=== PATIENT | male | born 1950 | race Caucasian/White ===

== ENCOUNTER → 2023-03-07 15:37 | Outpatient (POV) | payer SELFPAY | PROVIDERS: Visit Provider Specialist/Technologist | DX: Z00.00 Encounter for general adult medical examination without abnormal findings (principal) ==

== ENCOUNTER 2025-10-13 17:53 | Emergency (ER) | payer MEDICARE, MEDICAID, SELFPAY ==
[2025-10-13 18:00] VITALS: BP 126/76; PULSE 87; RESP 16; TEMP 37.1; O2SAT 96; BMI 27.2
[2025-10-13 18:36] LABS: POC Glucose,Bedside 135 gm/dL (70-110)
--- OUTSIDE RECORDS SUMMARY | 2025-10-13 18:38 | XMS_ITS | Data Portability ---
Author Organization [facility] Address [address] [place] [address] Assessment Encounter Date Assessment Date Assessment LastModified by Organization Details LastModified Time 06/26/2024 06/26/2024 Medicare Preventive Services Check List reviewed and printed for patient. [email or web address] Not available 06/26/2024 08:14:26 06/23/2025 06/23/2025 Patient presente d to office today for their Medicare Annual Wellness Visit. Education was provided on healthy nutrition, including a diet rich in fruits and vegetables, minimizing simple carbohydrates, salt, and saturated fats. Encouraged regular cardiovascular exercise such as walking at least 30 minutes daily, 5 times per week. Emphasized preventive health measures and educated pt on fall prevention and community-based lifestyle interventions to help reduce health risks and promote healthy living. Medicare Preventive Services Check List reviewed and printed for patient. [email or web address] Not available 06/23/2025 13:55:37 Plan of Treatment Reminders Order Date Submit Date Provider Last Modified By Organization Details Last Modified Time Details Appointments None recorded. Lab HbA1c (hemoglobin A1c), blood 2024 025 [facility], [address], [address], [place], [address], 18:07:36 CBC w/ auto diff 2024 025 [facility], [address], [address], [place], [address], 18:07:35 CMP, serum or plasma 2024 025 [facility], [address], [address], [place], [address], 5 18:07:36 HbA1c (hemoglobin A1c), blood 2024 025 [facility], [address], [address], [place], [address], 5 11:07:45 CMP, serum or plasma 2024 025 [facility], [address], [address], [place], [address], 5 11:07:43 CBC w/ auto diff 2024 025 [facility], [address], [address], [place], [address], 5 11:07:42 microalbumi n/creatinin e, mass ratio, urine 2024 025 [facility], [address], [address], [place], [address], 5 11:07:44 lipid panel, serum 2024 025 [facility], [address], [address], [place], [address], 5 11:07:43 TSH + free T4, serum 2024 025 [facility], [address], [address] [address], [place], [address], 5 11:07:41 HbA1c (hemoglobin A1c), blood 2023 024 [facility], [address] [place] [address], [id number], 4 09:14:09 rapid flu (A+B) 2023 024 [facility], [address] [place] [address], [id number], 4 14:02:50 rapid SARS CoV + SARS CoV 2 Ag, QL IA, respiratory specimen 2023 024 kemal [facility], [address], [place], [address], 4 14:02:52 Referral None recorded. Procedures None recorded. Surgeries None recorded. Imaging None recorded. Medication Orders prednisone 20 mg tablet 2024 025 [facility] [id number], [address] [place], [address], 5 05:02:02 Accu-Chek Guide test strips 2024 025 [facility] [id number], [address] [place], [address], 5 14:01:52 Patient TargetsNo targets recorded. Patient Instructions Encounter Date Encounter Id Patient Instructions Last Modified By Organization Details Last Modified Time 06/26/2024 [id number] advance directives: care instructions [email or web address] Not available 06/26/2024 08:46:27 learning about depression efryman Not available 06/26/2024 08:46:26 body mass index: care instructions efryman Not available 06/26/2024 08:46:27 learning about healthy weight efryman Not available 06/26/2024 08:46:27 preventing falls : care instructions efryman Not available 06/26/2024 08:46:27 medicare preventive services guide efryman Not available 06/26/2024 08:46:27 09/25/2024 [id number] body mass index: care instructions efryman Not available 09/25/2024 09:59:53 learning about healthy weight efryman Not available 09/25/2024 09:59:53 06/23/2025 [id number] advance directives: care instructions efryman Not available 06/23/2025 15:21:21 body mass index: care instructions efryman Not available 06/23/2025 15:21:22 learning about healthy weight efryman Not available 06/23/2025 15:21:21 learning about depression efryman Not available 06/23/2025 15:21:22 preventing falls : care instructions efryman Not available 06/23/2025 15:21:22 medicare preventive services guide efryman Not available 06/23/2025 15:21:22 Reason for Referral None Reported. Results Created Date Observation Date Name Description Value Unit Range Abnormal Flag Note LastModifiedBy Organization Detail LastModifiedTime 06/23/20 24 06/23/2024 rapid SARS CoV + SARS CoV 2 Ag, QL IA, respi rator y speci men SARS CoV antigen Negati ve Not Available [address], [address], 06/23/2024 13:22:33 06/23/20 24 06/23/2024 rapid flu (A+B) Flu negati ve Not Available [address], [address], 06/23/2024 13:22:06 06/23/20 24 06/23/2024 rapid flu (A+B) Type Both A & B Not Available [address], [address], 06/23/2024 13:22:06 06/26/20 24 06/26/2024 HbA1c (hemo globi n A1c), blood HbA1C 6.0 % Not Available [address], [address], 06/26/2024 08:47:14 12/26/19 25 12/26/2024 TSH+F REE T4 TSH 2.950 uIU/m L 0.450- 4.500 normal Not Available [facility] ([facility]) [address], [place], [address], 12/26/2024 11:07:41 12/26/19 25 12/26/2024 TSH+F REE T4 T4,free(dire ct) 0.98 NG/dL 0.82-1 .77 normal Not Available [facility] ([facility]) [address] [place], [address], 12/26/2024 11:07:41 12/26/19 25 12/26/2024 CBC WITH DIFFE RENTI AL/PL ATELE T WBC 5.7 x10e3 /uL 3.4-10 .8 normal Not Available [facility] ([facility]) [address] [place], [address], 12/26/2024 11:07:42 12/26/19 25 12/26/2024 CBC WITH DIFFE RENTI AL/PL ATELE T RBC 4.63 x10e6 /uL 4.14-5 .80 normal Not Available [facility] ([facility]) [address] [place], [address], 12/26/2024 11:07:42 12/26/19 25 12/26/2024 CBC WITH DIFFE RENTI AL/PL ATELE T hemoglobin 14.2 g/dL 13.0-1 7.7 normal Not Available [facility] ([facility]) [address] [place], [address], 12/26/2024 11:07:42 12/26/19 25 12/26/2024 CBC WITH DIFFE RENTI AL/PL ATELE T hematocrit 43.2 % 37.5-5 1.0 normal Not Available [facility] ([facility]) [address] [place], [address], 12/26/2024 11:07:42 12/26/19 25 12/26/2024 CBC WITH DIFFE RENTI AL/PL ATELE T MCV 93 fL 79-97 normal Not Available [facility] ([facility]) [address] [place], [address], 12/26/2024 11:07:42 12/26/19 25 12/26/2024 CBC WITH DIFFE RENTI AL/PL ATELE T MCH 30.7 pg 26.6-3 3.0 normal Not Available [facility] ([facility]) [address] [place], [address], 12/26/2024 11:07:42 12/26/19 25 12/26/2024 CBC WITH DIFFE RENTI AL/PL ATELE T MCHC 32.9 g/dL 31.5-3 5.7 normal Not Available [facility] ([facility]) [address] [place], [address], 12/26/2024 11:07:42 12/26/19 25 12/26/2024 CBC WITH DIFFE RENTI AL/PL ATELE T RDW 13.5 % 11.6-1 5.4 Not Available [facility] ([facility]) [address] [place], [address], 12/26/2024 11:07:42 12/26/19 25 12/26/2024 CBC WITH DIFFE RENTI AL/PL ATELE T platelets 215 x10e3 /uL 150-45 0 normal Not Available [facility] ([facility]) [address] [place], [address], 12/26/2024 11:07:42 12/26/19 25 12/26/2024 CBC WITH DIFFE RENTI AL/PL ATELE T neutrophils 58 % not estab. normal Not Available [facility] ([facility]) [address] [place], [address], 12/26/2024 11:07:42 12/26/19 25 12/26/2024 CBC WITH DIFFE RENTI AL/PL ATELE T lymphs 31 % not estab. normal Not Available [facility] ([facility]) [address] [place], [address], 12/26/2024 11:07:42 12/26/19 25 12/26/2024 CBC WITH DIFFE RENTI AL/PL ATELE T monocytes 7 % not estab. normal Not Available [facility] ([facility]) [address] [place], [address], 12/26/2024 11:07:42 12/26/19 25 12/26/2024 CBC WITH DIFFE RENTI AL/PL ATELE T eos 2 % not estab. normal Not Available [facility] ([facility]) [address] [facility], [place], [address], 12/26/2024 11:07:42 12/26/19 25 12/26/2024 CBC WITH DIFFE RENTI AL/PL ATELE T basos 1 % not estab. normal Not Available [facility] ([facility]) [address] [facility], [place], [address], 12/26/2024 11:07:42 12/26/19 25 12/26/2024 CBC WITH DIFFE RENTI AL/PL ATELE T immature cells STRAIGHTENING MACHINE OPERATOR Not Available [facility] ([facility]) [address] [place], [address], 12/26/2024 11:07:42 12/26/19 25 12/26/2024 CBC WITH DIFFE RENTI AL/PL ATELE T neutrophils (absolute) 3.3 x10e3 /uL 1.4-7. 0 normal Not Available [facility] ([facility]) [address] [place], [address], 12/26/2024 11:07:42 12/26/19 25 12/26/2024 CBC WITH DIFFE RENTI AL/PL ATELE T lymphs (absolute) 1.8 x10e3 /uL 0.7-3. 1 normal Not Available [facility] ([facility]) [address] [place], [address], 12/26/2024 11:07:42 12/26/19 25 12/26/2024 CBC WITH DIFFE RENTI AL/PL ATELE T monocytes(ab solute) 0.4 x10e3 /uL 0.1-0. 9 normal Not Available [facility] ([facility]) [address] [facility], [place], [address], 12/26/2024 11:07:42 12/26/19 25 12/26/2024 CBC WITH DIFFE RENTI AL/PL ATELE T eos (absolute) 0.1 x10e3 /uL 0.0-0. 4 normal Not Available [facility] ([facility]) [address] [facility], [place], [address], 12/26/2024 11:07:42 12/26/19 25 12/26/2024 CBC WITH DIFFE RENTI AL/PL ATELE T baso (absolute) 0.1 x10e3 /uL 0.0-0. 2 normal Not Available [facility] ([facility]) [address] [place], [address], 12/26/2024 11:07:42 12/26/19 25 12/26/2024 CBC WITH DIFFE RENTI AL/PL ATELE T immature granulocytes 1 % not estab. Not Available [facility] ([facility]) [address] [place], [address], 12/26/2024 11:07:42 12/26/19 25 12/26/2024 CBC WITH DIFFE RENTI AL/PL ATELE T immature grans (abs) 0.0 x10e3 /uL 0.0-0. 1 Not Available [facility] ([facility]) [address] [place], [address], 12/26/2024 11:07:42 12/26/19 25 12/26/2024 CBC WITH DIFFE RENTI AL/PL ATELE T NRBC STRAIGHTENING MACHINE OPERATOR Not Available [facility] ([facility]) [address] [place], [address], 12/26/2024 11:07:42 12/26/19 25 12/26/2024 CBC WITH DIFFE BRIANA AL/PL ATELE T hematology comments: STRAIGHTENING MACHINE OPERATOR Not Available [facility] ([facility]) [address] [facility], [place], [address], 12/26/2024 11:07:42 12/26/19 25 12/26/2024 COMP. METAB OLIC PANEL (14) glucose 170 mg/dL 70-99 above high normal Not Available [facility] ([facility]) [address] [facility], [place], [address], 12/26/2024 11:07:43 12/26/19 25 12/26/2024 COMP. METAB OLIC PANEL (14) BUN 22 mg/dL 8-27 normal Not Available [facility] ([facility]) [address] [facility], [place], [address], 12/26/2024 11:07:43 12/26/19 25 12/26/2024 COMP. METAB OLIC PANEL (14) creatinine 1.24 mg/dL 0.76-1 .27 normal Not Available [facility] ([facility]) [address] [place], [address], 12/26/2024 11:07:43 12/26/19 25 12/26/2024 COMP. METAB OLIC PANEL (14) eGFR 61 mL/mi n/1.7 3 >59 normal Not Available [facility] ([facility]) [address] [facility], [place], [address], 12/26/2024 11:07:43 12/26/19 25 12/26/2024 COMP. METAB OLIC PANEL (14) BUN/creatini ne ratio 18 10-24 normal Not Available [facility] ([facility]) [address] [place], [address], 12/26/2024 11:07:43 12/26/19 25 12/26/2024 COMP. METAB OLIC PANEL (14) sodium 141 mmol/ L 134-14 4 normal Not Available [facility] ([facility]) [address] [place], [address], 12/26/2024 11:07:43 12/26/19 25 12/26/2024 COMP. METAB OLIC PANEL (14) potassium 4.4 mmol/ L 3.5-5. 2 normal Not Available [facility] ([facility]) [address] [place], [address], 12/26/2024 11:07:43 12/26/19 25 12/26/2024 COMP. METAB OLIC PANEL (14) chloride 103 mmol/ L 96-106 normal Not Available [facility] ([facility]) [address] [place], [address], 12/26/2024 11:07:43 12/26/19 25 12/26/2024 COMP. METAB OLIC PANEL (14) carbon dioxide, total 23 mmol/ L 20-29 normal Not Available [facility] ([facility]) [address] [place], [address], 12/26/2024 11:07:43 12/26/19 25 12/26/2024 COMP. METAB OLIC PANEL (14) calcium 9.2 mg/dL 8.6-10 .2 normal Not Available [facility] ([facility]) [address] [place], [address], 12/26/2024 11:07:43 12/26/19 25 12/26/2024 COMP. METAB OLIC PANEL (14) protein, total 6.9 g/dL 6.0-8. 5 normal Not Available [facility] ([facility]) [address] [place], [address], 12/26/2024 11:07:43 12/26/19 25 12/26/2024 COMP. METAB OLIC PANEL (14) albumin 4.4 g/dL 3.8-4. 8 normal Not Available [facility] ([facility]) [address] [place], [address], 12/26/2024 11:07:43 12/26/19 25 12/26/2024 COMP. METAB OLIC PANEL (14) globulin, total 2.5 g/dL 1.5-4. 5 Not Available [facility] ([facility]) [address] [place], [address], 12/26/2024 11:07:43 12/26/19 25 12/26/2024 COMP. METAB OLIC PANEL (14) bilirubin, total 0.8 mg/dL 0.0-1. 2 normal Not Available [facility] ([facility]) [address] [place], [address], 12/26/2024 11:07:43 12/26/19 25 12/26/2024 COMP. METAB OLIC PANEL (14) alkaline phosphatase 188 IU/L 44-121 above high normal Not Available [facility] ([facility]) [address] [place], [address], 12/26/2024 11:07:43 12/26/19 25 12/26/2024 COMP. METAB OLIC PANEL (14) AST (SGOT) 17 IU/L 0-40 normal Not Available [facility] ([facility]) [address] [place], [address], 12/26/2024 11:07:43 12/26/19 25 12/26/2024 COMP. METAB OLIC PANEL (14) ALT (SGPT) 14 IU/L 0-44 normal Not Available [facility] ([facility]) [address] [place], [address], 12/26/2024 11:07:43 12/26/19 25 12/26/2024 LIPID PANEL cholesterol, total 213 mg/dL 100-19 9 above high normal Not Available [facility] ([facility]) [address] [place], [address], 12/26/2024 11:07:43 12/26/19 25 12/26/2024 LIPID PANEL triglyceride s 287 mg/dL 0-149 above high normal Not Available [facility] ([facility]) [address] [place], [address], 12/26/2024 11:07:43 12/26/19 25 12/26/2024 LIPID PANEL HDL cholesterol 33 mg/dL >39 below low normal Not Available [facility] ([facility]) [address] [place], [address], 12/26/2024 11:07:43 12/26/19 25 12/26/2024 LIPID PANEL VLDL cholesterol audie 51 mg/dL 5-40 above high normal Not Available [facility] ([facility]) [address] [place], [address], 12/26/2024 11:07:43 12/26/19 25 12/26/2024 LIPID PANEL LDL chol calc ([facility]) 129 mg/dL 0-99 above high normal Not Available [facility] ([facility]) [address] [place], [address], 12/26/2024 11:07:43 12/26/19 25 12/26/2024 LIPID PANEL LDL calc comment: STRAIGHTENING MACHINE OPERATOR Not Available [facility] ([facility]) [address] [place], [address], 12/26/2024 11:07:43 12/26/19 25 12/26/2024 ALBUM IN/CR EAT RATIO , RANDO M UR creatinine, urine 254.8 mg/dL not estab. normal Not Available [facility] ([facility]) [address] [place], [address], 12/26/2024 11:07:44 12/26/19 25 12/26/2024 ALBUM IN/CR EAT RATIO , RANDO M UR albumin, urine 39.4 ug/mL not estab. Not Available [facility] ([facility]) [address] [facility], [place], [address], 12/26/2024 11:07:44 12/26/1912/26/2024 ALBUM IN/CR EAT RATIO , TEX Rudolph UR alb/creat ratio 15 mg/g_ creat 0-29 Mirna l: 0 - 29 Moder ately incre ased: 30 - 300 Sever elpidio incre ased: >300 Not Available [facility] ([facility]) [address] [facility], [place], [address], 12/26/2024 11:07:44 12/26/19 25 12/26/2024 HEMOG LOBIN A1C hemoglobin A1C 6.2 % 4.8-5. 6 above high normal Predi abete s: 5.7 - 6.4 Diabe raghavendra: >6.4 Glyce jael contr ol for adult s with diabe raghavendra: <7.0 Not Available [facility] ([facility]) [address] [facility], [place], [address], 12/26/2024 11:07:45 12/26/1912/26/2024 PLELOUIS E NOTE please note Commen t The date and/o r time of colle ction was not indic ated on the requi sitio n as requi red by state and julisa al law. The date of recei pt of the speci men was used as the colle ction date if not suppl ied. Not Available [facility] ([facility]) [address] [facility], [place], [address], 12/26/2024 11:07:46 06/23/20 25 06/24/2025 CBC WITH DIFFE RENTI AL/PL ATELE T WBC 7.4 x10e3 /uL 3.4-10 .8 normal Not Available [facility] ([facility]) [address] [facility], [place], [address], 06/24/2025 18:07:35 06/23/20 25 06/24/2025 CBC WITH DIFFE RENTI AL/PL ATELE T RBC 4.80 x10e6 /uL 4.14-5 .80 normal Not Available [facility] ([facility]) [address] [place], [address], 06/24/2025 18:07:35 06/23/20 25 06/24/2025 CBC WITH DIFFE RENTI AL/PL ATELE T hemoglobin 14.8 g/dL 13.0-1 7.7 normal Not Available [facility] ([facility]) [address] [place], [address], 06/24/2025 18:07:35 06/23/2006/24/2025 CBC WITH DIFFE RENTI AL/PL ATELE T hematocrit 44.6 % 37.5-5 1.0 normal Not Available [facility] ([facility]) [address] [place], [address], 06/24/2025 18:07:35 06/23/2006/24/2025 CBC WITH DIFFE RENTI AL/PL ATELE T MCV 93 fL 79-97 normal Not Available [facility] ([facility]) [address] [place], [address], 06/24/2025 18:07:35 06/23/2006/24/2025 CBC WITH DIFFE RENTI AL/PL ATELE T MCH 30.8 pg 26.6-3 3.0 normal Not Available [facility] ([facility]) [address] [place], [address], 06/24/2025 18:07:35 06/23/2006/24/2025 CBC WITH DIFFE RENTI AL/PL ATELE T MCHC 33.2 g/dL 31.5-3 5.7 normal Not Available [facility] ([facility]) [address] [place], [address], 06/24/2025 18:07:35 06/23/20 25 06/24/2025 CBC WITH DIFFE RENTI AL/PL ATELE T RDW 13.6 % 11.6-1 5.4 Not Available [facility] ([facility]) [address] [facility], [place], [address], 06/24/2025 18:07:35 06/23/20 25 06/24/2025 CBC WITH DIFFE RENTI AL/PL ATELE T platelets 214 x10e3 /uL 150-45 0 normal Not Available [facility] ([facility]) [address] [facility], [place], [address], 06/24/2025 18:07:35 06/23/20 25 06/24/2025 CBC WITH DIFFE RENTI AL/PL ATELE T neutrophils 62 % not estab. normal Not Available [facility] ([facility]) [address] [facility], [place], [address], 06/24/2025 18:07:35 06/23/20 25 06/24/2025 CBC WITH DIFFE RENTI AL/PL ATELE T lymphs 28 % not estab. normal Not Available [facility] ([facility]) [address] [facility], [place], [address], 06/24/2025 18:07:35 06/23/20 25 06/24/2025 CBC WITH DIFFE RENTI AL/PL ATELE T monocytes 7 % not estab. normal Not Available [facility] ([facility]) [address] [facility], [place], [address], 06/24/2025 18:07:35 06/23/20 25 06/24/2025 CBC WITH DIFFE RENTI AL/PL ATELE T eos 1 % not estab. normal Not Available [facility] ([facility]) [address] [facility], [place], [address], 06/24/2025 18:07:35 06/23/20 25 06/24/2025 CBC WITH DIFFE RENTI AL/PL ATELE T basos 1 % not estab. normal Not Available [facility] ([facility]) [address] [facility], [place], [address], 06/24/2025 18:07:35 06/23/20 25 06/24/2025 CBC WITH DIFFE RENTI AL/PL ATELE T immature cells STRAIGHTENING MACHINE OPERATOR Not Available [facility] ([facility]) [address] [facility], [place], [address], 06/24/2025 18:07:35 06/23/20 25 06/24/2025 CBC WITH DIFFE RENTI AL/PL ATELE T neutrophils (absolute) 4.6 x10e3 /uL 1.4-7. 0 normal Not Available [facility] ([facility]) [address] [facility], [place], [address], 06/24/2025 18:07:35 06/23/20 25 06/24/2025 CBC WITH DIFFE RENTI AL/PL ATELE T lymphs (absolute) 2.0 x10e3 /uL 0.7-3. 1 normal Not Available [facility] ([facility]) [address] [facility], [place], [address], 06/24/2025 18:07:35 06/23/20 25 06/24/2025 CBC WITH DIFFE RENTI AL/PL ATELE T monocytes(ab solute) 0.5 x10e3 /uL 0.1-0. 9 normal Not Available [facility] ([facility]) [address] [facility], [place], [address], 06/24/2025 18:07:35 06/23/20 25 06/24/2025 CBC WITH DIFFE RENTI AL/PL ATELE T eos (absolute) 0.1 x10e3 /uL 0.0-0. 4 normal Not Available [facility] ([facility]) [address] [facility], [place], [address], 06/24/2025 18:07:35 06/23/20 25 06/24/2025 CBC WITH DIFFE RENTI AL/PL ATELE T baso (absolute) 0.1 x10e3 /uL 0.0-0. 2 normal Not Available [facility] ([facility]) [address] [facility], [place], [address], 06/24/2025 18:07:35 06/23/20 25 06/24/2025 CBC WITH DIFFE RENTI AL/PL ATELE T immature granulocytes 0 % not estab. Not Available [facility] ([facility]) [address] [facility], [place], [address], 06/24/2025 18:07:35 06/23/20 25 06/24/2025 CBC WITH DIFFE RENTI AL/PL ATELE T immature grans (abs) 0.0 x10e3 /uL 0.0-0. 1 Not Available [facility] ([facility]) [address] [facility], [place], [address], 06/24/2025 18:07:35 06/23/20 25 06/24/2025 CBC WITH DIFFE RENTI AL/PL ATELE T NRBC STRAIGHTENING MACHINE OPERATOR Not Available [facility] ([facility]) [address] [facility], [place], [address], 06/24/2025 18:07:35 06/23/20 25 06/24/2025 CBC WITH DIFFE RENTI AL/PL ATELE T hematology comments: STRAIGHTENING MACHINE OPERATOR Not Available [facility] ([facility]) [address] [facility], [place], [address], 06/24/2025 18:07:35 06/23/20 25 06/24/2025 COMP. METAB OLIC PANEL (14) glucose 99 mg/dL 70-99 normal Not Available [facility] ([facility]) [address] [place], [address], 06/24/2025 18:07:36 06/23/20 25 06/24/2025 COMP. METAB OLIC PANEL (14) BUN 26 mg/dL 8-27 normal Not Available [facility] ([facility]) [address] [facility] [place], [address], 06/24/2025 18:07:36 06/23/20 25 06/24/2025 COMP. METAB OLIC PANEL (14) creatinine 1.31 mg/dL 0.76-1 .27 above high normal Not Available [facility] ([facility]) [address] [place], [address], 06/24/2025 18:07:36 06/23/20 25 06/24/2025 COMP. METAB OLIC PANEL (14) eGFR 57 mL/mi n/1.7 3 >59 below low normal Not Available [facility] ([facility]) [address] [place], [address], 06/24/2025 18:07:36 06/23/20 25 06/24/2025 COMP. METAB OLIC PANEL (14) BUN/creatini ne ratio 20 10-24 normal Not Available [facility] ([facility]) [address] [facility], [place], [address], 06/24/2025 18:07:36 06/23/20 25 06/24/2025 COMP. METAB OLIC PANEL (14) sodium 138 mmol/ L 134-14 4 normal Not Available [facility] ([facility]) [address] [place], [address], 06/24/2025 18:07:36 06/23/20 25 06/24/2025 COMP. METAB OLIC PANEL (14) potassium 4.7 mmol/ L 3.5-5. 2 normal Not Available [facility] ([facility]) [address] [place], [address], 06/24/2025 18:07:36 06/23/20 25 06/24/2025 COMP. METAB OLIC PANEL (14) chloride 100 mmol/ L 96-106 normal Not Available [facility] ([facility]) [address] [place], [address], 06/24/2025 18:07:36 06/23/20 25 06/24/2025 COMP. METAB OLIC PANEL (14) carbon dioxide, total 23 mmol/ L 20-29 normal Not Available [facility] ([facility]) [address] [place], [address], 06/24/2025 18:07:36 06/23/20 25 06/24/2025 COMP. METAB OLIC PANEL (14) calcium 9.7 mg/dL 8.6-10 .2 normal Not Available [facility] ([facility]) [address] [place], [address], 06/24/2025 18:07:36 06/23/20 25 06/24/2025 COMP. METAB OLIC PANEL (14) protein, total 7.3 g/dL 6.0-8. 5 normal Not Available [facility] ([facility]) [address] [place], [address], 06/24/2025 18:07:36 06/23/20 25 06/24/2025 COMP. METAB OLIC PANEL (14) albumin 4.7 g/dL 3.8-4. 8 normal Not Available [facility] ([facility]) [address] [place], [address], 06/24/2025 18:07:36 06/23/20 25 06/24/2025 COMP. METAB OLIC PANEL (14) globulin, total 2.6 g/dL 1.5-4. 5 Not Available [facility] ([facility]) [address] [place], [address], 06/24/2025 18:07:36 06/23/20 25 06/24/2025 COMP. METAB OLIC PANEL (14) bilirubin, total 1.0 mg/dL 0.0-1. 2 normal Not Available [facility] ([facility]) [address] [place], [address], 06/24/2025 18:07:36 06/23/20 25 06/24/2025 COMP. METAB OLIC PANEL (14) alkaline phosphatase 179 IU/L 44-121 above high normal Eff ectiv e Septe mber 2024 Alkal ine Phosp hatas e refer ence inter andrea will be langford ing to: Age Male Femal e 0 - 5 days 47 - 127 47 - 127 6 - 10 days 29 - 242 29 - 242 11 - 20 days 109 - 357 109 - 357 21 - 30 days 94 - 494 94 - 494 1 - 2 month s 149 - 539 149 - 539 3 - 6 month s 131 - 452 131 - 452 7 - 11 month s 117 - 401 117 - 401 12 month s - 6 years 158 - 369 158 - 369 7 - 12 years 150 - 409 150 - 409 13 years 156 - 435 78 - 227 14 years 114 - 375 64 - 161 15 years 88 - 279 56 - 134 16 years 74 - 207 51 - 121 17 years 63 - 161 47 - 113 18 - 20 years 51 - 125 42 - 106 21 - 50 years 47 - 123 41 - 116 51 - 80 years 49 - 135 51 - 125 >80 years 48 - 129 48 - 129 Not Available [facility] ([facility]) [address] [place], [address], 06/24/2025 18:07:36 06/23/20 25 06/24/2025 COMP. METAB OLIC PANEL (14) AST (SGOT) 18 IU/L 0-40 normal Not Available [facility] ([facility]) [address] [place], [address], 06/24/2025 18:07:36 06/23/20 25 06/24/2025 COMP. METAB OLIC PANEL (14) ALT (SGPT) 15 IU/L 0-44 normal Not Available [facility] ([facility]) [address] [place], [address], 06/24/2025 18:07:36 06/23/20 25 06/24/2025 HEMOG LOBIN A1C hemoglobin A1C 6.1 % 4.8-5. 6 above high normal Predi abete s: 5.7 - 6.4 Diabe raghavendra: >6.4 Glyce jael contr ol for adult s with diabe raghavendra: <7.0 Not Available [facility] ([facility]) [address] [facility], [place], [address], 06/24/2025 18:07:36 Result Notes None recorded. Problems Name Problem SNOMED Code Status Onset Date Resolution Date Notes Provider Name and Address Organization Details Recorded Time Gout 39627149 Active 019 Darin Diane, DEVELOPMENT ASSISTANT [address], [place], [address] , [place] - [facility] 3 09:54:30 Type 2 diabetes mellitus 70421665 Active 024 Darin Diane, DEVELOPMENT ASSISTANT [address], [place], [address] , [place] - [facility] 4 09:04:12 Problem Notes None recorded. Procedures Surgical History Date Name Laterality Status Provider Name and Address Organization Details Recorded Time 5 Cerumen Removal completed Darin Diane, DEVELOPMENT ASSISTANT [address], [place], [address], [place] - [facility] 06/23/2025 15:44:10 5 Advance Care Planning completed Dary Grajeda [place] - [facility] 06/23/2025 13:55:38 5 Functional Status Assessed completed Dary Grajeda [facility] 06/23/2025 13:55:38 4 Advance Care Planning completed Asia Ellison [place] - [facility] 06/26/2024 08:14:27 4 Functional Status Assessed completed Asia Ellison [facility] 06/26/2024 08:14:27 Imaging Results None recorded. Procedure Notes None recorded. Medical Equipment None Reported. Allergies No known drug allergies Medications Name Sig Start Date Stop Date Status Note LastModified by Organization Details LastModified Time prednisone 20 mg tablet Take 1 tablet twice a day by oral route for 3 days. 07/03 completed Not Available Not Available Not Available OneTouch Ultra Test strips Take 1 strip 3 times a day by miscell. route. 06/23 completed Not Available Not Available Not Available oseltamivir 75 mg capsule Take 1 capsule twice a day by oral route for 5 days, for flu. 03/03 completed Not Available Not Available Not Available indomethacin 50 mg capsule TAKE ONE (1) CAPSULE THREE (3) TIMES A DAY BY ORAL ROUTE FOR FIVE (5) DAYS. 03/11 completed Not Available Not Available Not Available diclofenac 1 % topical gel 06/23 completed Not Available Not Available Not Available Accu-Chek Guide Me Glucose Meter 06/23 completed Not Available Not Available Not Available Vitals Date Recorded Body height Body mass index (BMI) Body weight Heart rate Oxygen saturation Respiratory rate Pain severity - 0-10 verbal numeric rating [Score] - Reported Body temperature Systolic And Diastolic Provider Name and Address Organization Details Last Updated DateTime 5 177.8 cm 27.4 kg/m2 79197.1 4 g 78 /min 98 % 18 /min 0 98.1 [degF] 130/78 mm[Hg] Asia Ellison [facility] 5 08:16:04 Date Recorded Body height Body mass index (BMI) Body weight Body temperature Heart rate Oxygen saturation Respiratory rate Pain severity - 0-10 verbal numeric rating [Score] - Reported Systolic And Diastolic Provider Name and Address Organization Details Last Updated DateTime 4 177.8 cm 27.8 kg/m2 47520.9 2 g 98 [degF] 86 /min 96 % 18 /min 0 128/80 mm[Hg] Asia Ellison [facility] 4 13:18:14 Date Recorded Body height Respiratory rate Body mass index (BMI) Body weight Heart rate Oxygen saturation Body temperature Systolic And Diastolic Provider Name and Address Organization Details Last Updated DateTime 5 177.8 cm 18 /min 26.8 kg/m2 38550.7 7 g 74 /min 99 % 97.9 [degF] 136/80 mm[Hg] Dary Grajeda [place] - [facility] 5 14:00:33 Date Recorded Body height Body mass index (BMI) Body weight Body temperature Heart rate Oxygen saturation Respiratory rate Pain severity - 0-10 verbal numeric rating [Score] - Reported Systolic And Diastolic Provider Name and Address Organization Details Last Updated DateTime 4 177.8 cm 27.1 kg/m2 18009.6 6 g 97 [degF] 86 /min 95 % 18 /min 0 124/70 mm[Hg] Asia Ellison [place] - [facility] 4 08:20:18 Date Recorded Body height Body mass index (BMI) Body weight Body temperature Heart rate Oxygen saturation Respiratory rate Pain severity - 0-10 verbal numeric rating [Score] - Reported Systolic And Diastolic Provider Name and Address Organization Details Last Updated DateTime 4 177.8 cm 27.4 kg/m2 98821.1 4 g 97.6 [degF] 77 /min 96 % 18 /min 0 136/80 mm[Hg] Asia Ellison [place] - [facility] 4 08:16:38 Social History Question Answer Notes LastModified by Organizat ion Details LastModified Time Tobacco Smoking Status Former Smoker Francesca Greene rogerio [place] - [facility] 05/13/2019 11:07:34 Do You Have An Advance Directive? No Information not available 06/23/2025 Are You Blind Or Do You Have Difficulty Seeing? No Information not available 06/23/2025 What Is Your Level Of Caffeine Consumption? Occasional Information not available 06/23/2025 How Much Tobacco Do You Chew? 1/day Fredy Every 3 Days Information not available 06/23/2025 In The 14 Days Before Symptom Onset, Have You Had Close Contact With A Laboratory-confir med COVID-19 While That Case Was Ill? No Information not available 06/26/2024 In The 14 Days Before Symptom Onset, Have You Had Close Contact With A Person Who Is Under Investigation For COVID-19 While That Person Was Ill? No Information not available 06/26/2024 Have You Been To An Area Known To Be High Risk For COVID-19? No Information not available 06/26/2024 Are You Deaf Or Do You Have Serious Difficulty Hearing? No Information not available 06/23/2025 What Type Of Diet Are You Following? REGULAR [email or web address] Information not available 05/13/2019 Have You Processed Blood Or Body Fluids From An Ebola Virus Disease Patient Without Appropriate PPE? No Information not available 06/26/2024 Do You Reside In Or Have You Traveled To An Area Where Ebola Virus Transmission Is Active? No Information not available 06/26/2024 Have There Been Any Changes To Your Family Or Social Situation? No Information no t available 06/23/2025 What Is The Fluoride Status Of Your Home? Unknown Information not available 06/23/2025 When Did You Quit Smoking? 16+yearssince lastcigarette Information not available 06/23/2025 Hard Of Hearing Or Deaf In One Or Both Ears? No [email or web address] Information not available 05/13/2019 Have You Recently Or Are You Planning To Travel To An Area With Zika Virus? No Information not available 06/26/2024 Legally Blind In One Or Both Eyes? No [email or web address] Information no t available 05/13/2019 Live Alone Or With Others? With Others [email or web address] Information not available 05/13/2019 Do You Have A Medical Power Of Bricklayer Sewer? No Information not available 06/23/2025 What Was The Date Of Your Most Recent Tobacco Screening? 06/23/2025 Information not available 06/23/2025 What Is Your Current Pack Years? 10-19packyear s Information not available 06/23/2025 What Is Your Relationship Status? Information not available 05/13/2019 Smoke Alarm In Home Yes [email or web address] Information not available 05/13/2019 Do You Have Smoke And Carbon Monoxide Detectors In Your Home? Yes Information not available 06/23/2025 At What Age Did You Start Smoking Tobacco? 16 Per Patient Information not available 06/23/2025 How Much Tobacco Do You Smoke? 0.25 PPD Information not available 06/23/2025 Has Tobacco Cessation Counseling Been Provided? Yes Information not available 03/03/2024 On What Date Was Tobacco Cessation Counseling Provided? 03/03/2024 Former Smoker Information not available 06/23/2025 How Many Years Have You Smoked Tobacco? 18 Stopped Around Age 34 Per Patient Information not available 06/23/2025 Do You Have Difficulty Walking Or Climbing Stairs? No Information not available 06/23/2025 Sex: Male Functional Status Question Answer Note LastModified by Organizat ion Details LastModified Time Do you use any illicit or recreational drugs? No Information not available 03/03/2024 Do you or have you ever used any other forms of tobacco or nicotine? Yes Information not available 03/03/2024 What is your level of alcohol consumption? None Information not available 06/23/2025 Do you or have you ever used smokeless tobacco? Currently chews tobacco Information not available 03/03/2024 Are you currently employed? No Information not available 06/23/2025 Do you have transportation difficulties? No Information not available 06/23/2025 Are you able to walk independently without assistance or assistive devices? YESWOREST [email or web address] Information not available 05/13/2019 Do you have difficulty doing errands alone? No Information not available 06/23/2025 Are you able to care for yourself independently? Yes [email or web address] Information not available 05/13/2019 Do you have difficulty dressing, bathing, grooming, or toileting? No Information not available 06/23/2025 Do you or have you ever used e-cigarettes or vape? Never used electronic cigarettes Information not available 06/23/2025 Mental Status Question Answer Note LastModified by Organizat ion Details LastModified Time Do you feel stressed (tense, restless, nervous, or anxious, or unable to sleep at night)? [id number] Information not available 06/23/2025 Do you have difficulty concentrating, remembering or making decisions? No Information no t available 06/23/2025 Family History Relationship Description Onset Age of this Age Resolved Age Notes LastModified by Organization Details LastModified Time Father No current problems or disability [email or web address] Not available 05/13 11:07:16 Mother No current problems or disability [email or web address] Not available 05/13 11:07:16 Medical History Condition Response Colonoscopy N Immunizations Vaccine Type Date Status Note Provider Name and Address Organization Details Recorded Time Tdap 024 completed Asia beatty, [place] - [facility] 03/25/2024 10:01:02 zoster recombinant 024 cancelled patient objection Darin Diane, DEVELOPMENT ASSISTANT [address], [place], [address], [place] - [facility] 03/25/2024 09:49:35 Pneumococcal conjugate PCV20, polysaccharide [id number] conjugate, adjuvant, PF 024 cancelled patient objection Darin Diane, DEVELOPMENT ASSISTANT [address], [place], [address], [place] [facility] 03/25/2024 09:51:27 Influenza, high-dose, trivalent, PF 024 cancelled patient objection Darin Diane, DEVELOPMENT ASSISTANT [address], [place], [address], [place] [facility] 06/26/2024 09:01:42 zoster recombinant 024 cancelled patient objection Darin Diane APRN [address], [place], [address], [facility] - [facility] 06/26/2024 09:01:42 Pneumococcal conjugate PCV20, polysaccharide [id number] conjugate, adjuvant, PF 024 cancelled patient objection Darin Diane, ANGELES [address], [place], [address], [place] [facility] 06/26/2024 09:01:42 Pneumococcal conjugate PCV20, polysaccharide [id number] conjugate, adjuvant, PF 025 cancelled patient objection Dary Grajeda null, [place] - [facility] 06/23/2025 15:50:56 zoster recombinant 025 cancelled patient objection Dary Grajeda null, [place] - [facility] 06/23/2025 15:50:56 Td (adult), 5 Lf tetanus toxoid, preservative free, adsorbed 005 completed Asia Ellison null, [place] - [facility] 01/29/2023 16:01:19 Past Encounters Encounter ID Performer Location Encounter Start Date Encounter Closed Date Diagnosis/Indication Diagnosis SNOMED-CT Code Diagnosis ICD10 Code Diagnosis IMO Codes Diagnosis Note [id number] Jenna Bird APRN [facility] [address] [place] [address] 05/13/2019 09:59:34 05/13/2019 11:35:43 [facility] 16250356 M10.9 [id number] Darin Diane [address] [address] 01/29/2023 15:40:08 01/29/2023 16:22:39 Gout 52363855 M10.9 do not take indomethac in with steroids. Pain of ri ght shoulder joint 4358413580 7238804 M25.511 rest shoulderif no improvemen t will do more work up Bursitis o f right shoulder 5050802284 91808 M75.51 [id number] Darin Diane [address] [address] 02/12/2023 09:14:48 02/12/2023 09:56:34 Gout 14544271 M10.9 return for any concernsca ll when ready to have labs done [id number] Darin Diane [address] [address] 10/25/2023 16:35:22 10/25/2023 17:02:55 Influenza caused by Influenza A virus 632414848 J09.X2 no sign of a bacterial infection. likely viral. viruses can take 7-14 days to run their course. nasal saline and bulb syringe to remove nasal drainage to help with congestion . monitor temp. Tylenol or Motrin as needed for pain or fever. encourage fluids, water, Gatorade, power aide, Pedialyte if infant/tod dler/child warm salt water gargles warm fluids sore throat lozenges sleep elevated humidifier /vaporizer follow up immediatel y for new or worsening symptoms or no noticeable improvemen t over the next 48-72 hours [id number] Asia Morales [facility] [address] [place] [address] 03/03/2024 15:06:19 03/03/2024 16:35:17 Gout 32398511 M10.9 Nicotine dependence 5629 4008 F17.200 Screening for malignant neoplasm of colon 853039738 Z12.11 Body mass index 25-29 - overweight 625199632 Z68.28 Overweight 177114642 E66 .3 [id number] Eugzulema Diane APRN [address] [address] 03/11/2024 15:50:33 03/11/2024 17:01:15 Gout 79676294 M10.9 return for any concerns [id number] Darcyzulema Diane DEVELOPMENT ASSISTANT [address] [address] 03/25/2024 09:04:54 03/25/2024 10:06:35 Body mass index 25-29 - overweight 881427353 Z68.28 Will check TSH and evaluate results. Overweight 804169376 E66 .3 Weight and overall well being discussed and will evaluate labs. Hyperlipid emia screening 497484020 Z13.220 Will check labs and evaluate. Gout 78380635 M10.9 Patient states prednisone helped and hasn't had any flare ups since last visit.Disc ussed returning for any concerns or new flare ups. Active or passive immunization 379028838 Z23 Hepatitis C screening declined 1172826604 5105 Z53.20 Abdominal aortic aneurysm screening declined 254958123 Z53.20 [id number] Darin NeffbassemANGELES [address] [address] 03/31/2024 08:22:08 03/31/2024 09:20:32 Impaired fasting glycemia 878724212 R73.01 Type 2 yovanny betes mellitus 77287358 E11.9 new dx of type 2 dm discussed in detail dxeducatio n packet given to pt, discussed the dx in great detailfoot care instructio ns given to ptmonitor/ test strips/jazlyn cet sample given to ptcheck glucose daily or at times he feels diffkeep log bring to next appointmen tpt wants to try diet first before any meds. discussed he he sees glucose staying up even with diet to return.vicky terry recheck all labs in 3 months Gout 65454771 M10.9 Discussed returning for any concerns or new flare ups. [id number] Darcyzulema Diane APRN [address] [address] 06/23/2024 13:04:28 06/23/2024 14:41:26 Viral upper respiratory tract infection 263018101 J06.9 no sign of a bacterial infection. likely viral. viruses can take 7-14 days to run their course. nasal saline and bulb syringe to remove nasal drainage to help with congestion . monitor temp. Tylenol or Motrin as needed for pain or fever. encourage fluids, water, Gatorade, power aide, Pedialyte if infant/tod dler/child warm salt water gargles warm fluids sore throat lozenges sleep elevated humidifier /vaporizer follow up immediatel y for new or worsening symptoms or no noticeable improvemen t over the next 48-72 hours [id number] Darin Diane APRN [address] [address] 06/26/2024 08:05:26 06/26/2024 09:28:04 Adult health examination 296236152 Z00.00 Depression screening 171 943685 Z13.31 A depression screening was completed via a standardiz ed screening tool. 5 minutes were spent discussing depression screening results and risk factors. Examinatio n of blood pressure 049341587 Z01.30 Diet education 10502891 Z71.3 Counseling 117164757 Z71 .82 Exercise counseling . Patient encouraged to exercise 30 minutes 5 days a week. At [facility] ed risk for falls 087182422 Z91.81 STEADI FAST screening score of __1___. Advance care planning 71 9392905 Z71.89 Body mass index 25-29 - overweight 315404459 Z68.27 Overweight 795560371 E66 .3 Weight and overall well being discussed Active or passive immunization 910580241 Z23 Type 2 yovanny betes mellitus 96419479 E11.9 new dx of type 2 dm discussed in detail dxeducatio n packet given to pt, discussed the dx in great detailfoot care instructio ns given to ptmonitor/ test strips/jazlyn cet sample given to ptcheck glucose daily or at times he feels diffkeep log bring to next appointmen tpt wants to try diet first before any meds. discussed he he sees glucose staying up even with diet to return.vicky terry recheck all labs in 3 months [id number] Darin Diane [address] [address] 09/25/2024 08:03:20 09/25/2024 08:56:52 Type 2 diabetes mellitus 82822340 E11.9 pt does not want a1c checked today, states it is doing good for now. I discussed the importance of checking to see if he needs to start meds and he again declined states his diet is working well. Pt states he does not want to take any medscheck glucose daily or at times he feels diffkeep log bring to next appointmen tpt wants to try diet first before any meds. discussed he he sees glucose staying up even with diet to return.vicky terry recheck all labs in 3 months Body mass index 25-29 - overweight 268722599 Z68.27 Overweight 777790075 E66 .3 Weight and overall well being discussed [id number] Darin Neffraisanatasha [address] [address] 12/25/2024 08:08:34 12/25/2024 09:39:28 Type 2 diabetes mellitus 99210684 E11.9 [id number] [facility] [address] [address] 06/23/2025 13:42:56 06/23/2025 16:08:02 Adult health examination 610091033 Z00.00 Depression screening 171 117903 Z13.31 A depression screening was completed via a standardiz ed screening tool. 5 minutes were spent discussing depression screening results and risk factors. Examinatio n of blood pressure 467470266 Z01.30 Diet education 35327377 Z71.3 Counseling 075194464 Z71 .82 Exercise counseling . Patient encouraged to exercise 30 minutes 5 days a week. At [facility] ed risk for falls 539496664 Z91.81 STEADI FAST screening score of __3___. Advance care planning 71 4894822 Z71.89 Overweight in adulthood with body mass index of 25 or more but less than 30 485398783 E66.3 Z68.26 2883459060 26.8 Pneumococc al vaccination declined 585736389 Z28.[id number] vaccination declined 4174879678 102 Z28.21 8228623759 Hepatitis C screening declined 9608966913 5105 Z53.20 1691433088 Colon canc er screening declined 3123731407 9109 Z53.20 7718514625 Abdominal aortic aneurysm screening declined 395514412 Z53.20 5837520407 Osteoporos is screening declined 4300648977 74575 Z53.20 1373968427 Type 2 yovanny betes mellitus 42490082 E11.9 pt does not want any meds states he will continue diet and monitoring Impacted c erumen in right ear 8938585469 041236 H61.21 3698182 Gouty arth ritis of toe 546474006 M10.9 [id number] Discussed returning for any concerns or new flare ups. Health Concerns Section Related Observation LastModified by Organization Detai ls LastModified Time None Recorded Concern Status LastModified by Organization Details LastModified Time None Recorded Advance Directives Directive N: Payers Insurance Date Sequence Insurance Name Policy Number Policy Taylor Covered Member ID Taylor Member ID Guarantor Name 08/19/2025 2 MEDICAID-[facility] - FFS/TRADITIONA L Tavon James [id number] Tavon James 03/31/2024 3 [place] Tavon James [id number] Tavon James 12/25/2024 1 [place]MED[place]ACEMENT HMO[place] [id number] Tavon James [id number] Tavon James 06/20/2025 [employer] [place] [facility] (MEDICARE) Tavon James [id number] Tavon James 08/19/2025 1 WELL[employer]ARE (MEDICARE REPLACEMENT/AD VANTAGE - HMO) Tavon James [id number] Tavon James Notes Date Note Type Note Provider Name and Address Organization Details Recorded Time 4 text/html ROS as noted in the HPI 73 yr old male presents for cough and congestion for the last few days. denies fever Darin Diane, DEVELOPMENT ASSISTANT [address], [place], [address], [place] - [facility] 06/23/2024 14:03:27 09/12/202 4 text/html Medicare Annual Wellness VisitReported by PatientSocial/Behavioral HistoryFor diet and nutrition, patient reportsdiscussed portion controlanddiscussed diet improvement. For fracture risk, patient reportsno history of fractures,no recent explained fracture,no sudden unexplained fractures, andno previous musculoskeletal injuries. For physical activity, patient reportsexercises on a regular basisandgood physical condition.Mental Status:For depression risk, patient reportsnever feels sad, empty, or tearful,no loss of interest in activities,no significant changes in weight,no sleep disturbances or insomnia,no agitation,no loss of energy,no feelings of worthlessness or guilt,no thoughts of suicide,no history of depression, andno history of mood disorders. For orientation, patient reportsno disorientation to time,no disorientation to date, andno disorientation to place. For concentration and memory, patient reportsno decreased concentrating ability,no memory lapses or loss, anddoes not forget words. For speech/motor difficulties, patient reportsno speech difficulties,no difficulty expressing formulated concepts,no difficulty with fine manipulative tasks,no difficulty writing/copying,no slowed reaction time, anddoes not knock things over when trying to pick them up.Functional AbilityFor hearing, patient reportsloss of hearing: in both ears. For vision, patient reportsworse both distance and near(patient wants to get an updated eye exam/new glasses). For activities of daily living, patient reportsable to bathe with limited or no assistance,able to contol urination and bowels,able to dress with limited or no assistance,able to feed self with limited or no assistance,able to get out of chair or bed with limited or no assistance,able to groom with limited or no assistance, andable to toilet with limited or no assistance. For instrumental activities of daily living, patient reportsable to do house work with limited or no assistance,able to grocery shop with limited or no assistance,able to manage medications with limited or no assistance,able to manage money with limited or no assistance,able to prepare meals with limited or no assistance, andable to use the phone with limited or no assistance. For falls risk assessment, patient reportsno frequent falls while walking,no fall in the past year,no fall since last visit, andno dizziness/vertigo. For home safety, patient reportsno unsafe uriel hazzards,no unsafe stairs,no unsafe gas appliances,working smoke/co detectors,use of seatbelts, andno vision or hearing loss while driving. For current level of pain, patient reportsno pain: 0/10. 73 yr old male presents for a medicare annual wellness. pt states his glucose has improved with diet change. states its running 90-120 but can be higher based on foods he eats Darin Diane APRN [address], [place], [address], [employer] [facility] 06/26/2024 09:01:43 4 text/html ROS as noted in the HPI 73 yr old male presents for a follow up on diabetes. pt states his glucose has been doing well. this morning glucose was 130. pt states it normally runs 100-130 depending on what he is eating. pt states he recently had a1c checked at the library and he was told it was normal. Darin Diane DEVELOPMENT ASSISTANT [address], [place], [address], [employer] [facility] 09/25/2024 10:00:36 5 text/html 74 yr old male presents to follow up on diabetes. He states his blood sugar is ranging from about 98-136. Darin Diane APRN [address], [place], [address], [employer] [facility] 12/25/2024 08:30:26 5 text/html Medicare Annual Wellness VisitReported by PatientSocial/Behavioral HistoryFor diet and nutrition, patient reportshigh caloric intakeandhigh carbohydrate meals. For fracture risk, patient reportshistory of fractures (arm and wrist)but reportsno recent explained fractureandno sudden unexplained fractures. For physical activity, patient reportsdoes not exercise on a regular basisbut reportsgood physical condition.Mental Status:For depression risk, patient reportsnever feels sad, empty, or tearful,no loss of interest in activities,no significant changes in weight,no sleep disturbances or insomnia,no agitation,no loss of energy,no feelings of worthlessness or guilt,no thoughts of suicide,no history of depression, andno history of mood disorders. For orientation, patient reportsno disorientation to time (2:30),no disorientation to date (06-23-25), andno disorientation to place (dr. abrams). For concentration and memory, patient reportsno decreased concentrating ability,no memory lapses or loss, anddoes not forget words. For speech/motor difficulties, patient reportsno speech difficulties,no difficulty expressing formulated concepts,no difficulty writing/copying, anddoes not knock things over when trying to pick them up.Functional AbilityFor hearing, patient reportsloss of hearing: in both earsbut reportswears hearing aids. For vision, patient reportsworse both distance and near. For home safety, patient reportsno smoke/co detectorsbut reportsno unsafe uriel hazzards,no unsafe stairs,no unsafe gas appliances,use of seatbelts,no vision or hearing loss while driving,has hand bars in the bathroom/shower, andgood lighting in the home. For activities of daily living, patient reportsable to bathe with limited or no assistance,able to contol urination and bowels,able to dress with limited or no assistance,able to feed self with limited or no assistance,able to get out of chair or bed with limited or no assistance,able to groom with limited or no assistance, andable to toilet with limited or no assistance. For instrumental activities of daily living, patient reportsable to do house work with limited or no assistance,able to grocery shop with limited or no assistance,able to manage medications with limited or no assistance,able to manage money with limited or no assistance,able to prepare meals with limited or no assistance, andable to use the phone with limited or no assistance. For falls risk assessment, patient reportsno frequent falls while walking,no fall in the past year,no fall since last visit, andno dizziness/vertigo. For current level of pain, patient reportsno pain: 0/10. 74 year old male who presents to the office today for a medicare annual wellness. pt states gout flare in libia foot. also having ear dullness Darin Diane, DEVELOPMENT ASSISTANT [address], [place], [address], [place] [facility] 06/23/2025 16:34:20
--- NOTE | 2025-10-13 19:16 | ED_ITS ---
<Statement entered by Nikhil Sousa MD - 10/13/25 23:16> I was consulted by the ALONA, and we discussed the complexity of the problems being addressed. I approved the treatment and management plan for this patient's care in the emergency department, thus performing a substantive portion of the medical decision making. Nikhil Sousa MD, MONIQUE, FACEP Discharge Plan Disposition Patient Disposition: Home, Self-Care Condition: Good Prescriptions Prescriptions: No Action diclofenac sodium 1 % gel 4 g topical QID PRN (Reason: pain ) 30 Days Qty: 100 2RF Rx Instructions: apply to single, ankle, foot; for foot includes sole/toes/top of foot Referrals Follow up/Referrals: Darin Diane APRN [Primary Care Provider, Medical] - See instructions Activity Restrictions/Add. Instructions Additional Instructions/Restrictions: You were evaluated on an emergency basis. It is very important that you follow- up with your primary care provider and any specialist who we discussed within the next 2 days in order to better assess your health more comprehensively. For example, incidental findings on imaging or laboratory results that were p erformed today may be discovered, which do not require immediate medical care, but may impact your health in the future. If your symptoms worsen or persist, please return to the emergency department immediately for reassessment. Take all medications as prescribed. In queue for allowing me to participate in your health care, and I hope you feel better soon. Clinical Impressions Clinical Impression: Dehydration Instructions Patient Instructions: DI for Dehydration in Adults Print Language Print Language: Egyptian Discharge ED Provider: Nikhil Sousa General Adult HPI General Chief complaint: Dizziness Stated complaint: Lightheaded,V/D,pre-diabdtic Time Seen by Provider: 10/13/25 19:17 Mode of Arrival: Ambulatory Source of Information: Patient Description of Symptoms (Recalled from ER Triage Doc. by RN): Patient states for the last couple of days he has been having vague dizziness, states had vomiting yesterday, none today. History of Present Illness HPI narrative: 74-year-old male presents to the emergency department with complaints of dizziness. Patient reports that he had nausea and vomiting for the past 2 days. He states his symptoms resolved yesterday. He states that during that time he was dizzy. He reports his dizziness finally improved earlier today. He states while he was waiting to come to the ER he is feeling better but his was concerned and wanted him to come to be evaluated. Related Data Previous Rx's ?Medication ?Instructions ?Recorded diclofenac sodium 1 % topical gel 4 g topical QID PRN pain 30 days 05/19/24 #100 grams Allergies Allergy/AdvReac Type Severity Reaction Status Date / Time No Known Allergies Allergy Verified 10/13/25 18:39 [facility] Disclaimer: The information contained in this section may have been updated after the patient was seen, as this information can be updated by other users. Family History (Updated 05/19/24 @ 11:26 by BRITTANY Smallwood) Brother Alcoholism Sister Asthma Mother Cancer Social History (Updated 05/19/24 @ 11:27 by BRITTANY Smallwood) Smoking Status: Former smoker alcohol intake: never current occupational status: retired Travel in the last 8 weeks?: None Have you lived/traveled outside [place] in past 30 days?: No Contact w/someone who lives/traveled outside US past 30 days?: No Exposure to someone with infectious disease in past 14 days?: No Do you have a fever (greater than 100.4 F or 38 C)?: No Have you tested positive for COVID-19?: No Exposed to someone with COVID-19 in past 14 days?: No Do you have a sore throat?: No Do you have a cough?: No Do you have any weakness?: No Do you have any diarrhea?: Yes Are you experiencing any unusual bleeding?: No Do you have any muscle aches/pain?: No Do you have any abdominal pain?: No Are you experiencing loss of taste or smell?: No Other Medical History Have you received the Pneumonia Vaccine: No ROS Obtained: Yes other ENT Ears, Nose, Mouth, and Throat: Reports dizziness Gastrointestinal Gastrointestingal: Reports diarrhea, nausea and vomiting Neurologic Neurologic: Reports dizziness Physical Exam Narrative Physical exam: General: Awake, aware, in no acute distress HEENT: Normal cephalic, no evidence of trauma, PERRLA, EOMI CV: RRR, no murmurs, rubs, or gallops Pulm: CTA bilaterally with no rhonchi, rales, or wheezes ABD: Nontender, no swelling, guarding, or rebound Neuro: ANO x 4, GCS 15, no focal deficits noted Psych: Appropriate mood and affect General General appearance: alert Respiratory Respiratory exam: Present normal lung sounds bilaterally Cardiovascular Cardiovascular exam: Present regular rate Neurological Exam Neurological exam: Present alert Expanded Neurological Exam Patient oriented to: Present person, place and time Speech: Present fluid speech Cerebellar function: Normal: finger to nose and heel to golden Cerebellar function: normal gait Motor strength - LUE: 5/5 Motor strength - RUE: 5/5 Motor strength - LLE: 5/5 Motor strength - RLE: 5/5 Coma scale eye opening: Spontaneous Coma scale motor response: Obeys commands Coma scale verbal response: Oriented Coma scale total: 15 Medical Decision Making Medical Records Screening: Per USPSTF and CDC recommendations, given the prevalence of disease in our region, it is our hospital?s policy to screen for HIV and viral Hepatitis for all patients aged 18 and over and those with ongoing risk factors. Ulises Inquiry Pt receiving controlled substance: No Vital Signs: 10/13/25 18:00 Temperature 98.8 F Temperature Source Oral Pulse Rate [Right Brachial] 87 Respiratory Rate 16 Blood Pressure [Right Arm] 126/76 Blood Pressure Mean [Right Arm] 92 Blood Pressure Source [Right Arm] Automatic Cuff Blood Pressure Position [Right Arm] Sitting 02 Sat by Pulse Oximetry 96 Oxygen Delivery Method Room Air Lab Data Lab Results 10/13/25 18:29: POC Glucose 135 H 10/13/25 19:33: Urine Color Yellow, Urine Appearance Sl cloudy, Urine pH 5.5, Ur Specific [place] 1.030, Urine Protein 1+ A, Urine Glucose (UA) Negative, Urine Ketones Negative, Urine Blood Negative, Urine Nitrate Negative, Urine Bilirubin Negative, Urine Urobilinogen 0.2, Ur Leukocyte Esterase Negative, Urine RBC 5- 10, Urine WBC 10-20, Ur Squamous Epith Cells 3-5, Urine Bacteria 1+, Urine Mucus 4+ Orders (Tests/Meds): ORDERS Category Date Time Status CBC w/Auto Diff [Complete Blood Count Auto Diff] Stat Lab 10/13/25 19:31 Ordered CMP [Comprehensive Metabolic Panel] Stat Lab 10/13/25 19:31 Ordered HIV Combo Stat Lab 10/13/25 18:38 Ordered Hepatitis C Ab Qual. W/ RFX Stat Lab 10/13/25 18:38 Ordered Magnesium Stat Lab 10/13/25 19:31 Ordered POC Glucose,Bedside Routine Lab 10/13/25 18:29 Completed Urinalysis and Microscopic Stat Lab 10/13/25 19:33 Completed Urine Culture Stat Micro 10/13/25 19:33 Received Medical Decision Narrative: Initial impression of presenting illness: 74-year-old male presents emergency department complaints of nausea, vomiting, diarrhea for the past 2 days. He rep orts that his symptoms improved this morning. He states that he was feeling dizzy while he was having those symptoms. He states his dizziness carried over until this morning and it has resolved since then. Patient states he is feeling much better however his wanted him to come to the ER for evaluation. Differential diagnosis includes but is not limited to: Dehydration, electrolyte abnormality, gastritis, gastroenteritis, intracranial abnormality, vertigo Patient arrives hemodynamically stable, afebrile, without respiratory distress with vital signs interpreted by myself. Initial physical exam unremarkable. Patient able to ambulate with steady gait. Negative Romberg. Patient's finger- nose and [id number] were normal as well patient with no focal neurological deficits. Abdomen soft nontender with normal active bowel sounds. Initial diagnostic plan: Abdominal pain workup Patient was made aware of the results and the findings, upon reevaluation patient has remained stable throughout stay, symptoms remained stable. Patient informed nursing staff that he would like to be discharged now. He states that he feels fine and that he needs to get home to take care of his who has a feeding tube and relies on him for nutrition. We explained to patient we do not yet have his workup completed. He states that he would like to follow-up with his regular doctor. I recommended patient increase his fluid intake and rest for the next couple of days. He may also consume a bland diet slowly advance as tolerated. I think his symptoms were likely related to dehydration related to recent gastroenteritis. I would like to have patient wait for the completion of his laboratory workup however I understand that he needs to get home to take care of his . Patient states he understands that we have not completed his workup and states that he will follow-up with his primary care provider. Patient made aware of findings and had a detailed discussion with symptomatic care and return precautions, patient voiced understanding. Critical Care Critical Care Time Critical Care Time: No
--- NOTE | 2025-10-13 19:22 | ECG_ITS ---
APPROVED REPORT Exam: Resting ECG HR:81 bpm ECG Measurements Heart Rate 81 AXES WY 120 P 54 QRSd 98 QRS 263 QT 360 T 31 QTc 397 Conclusion SINUS RHYTHM INDETERMINATE AXIS PATTERN CONSISTENT WITH PULMONARY DISEASE ABNORMAL ECG UNCONFIRMED REPORT Electronically signed by : Kory Sousa, 10/13/2025 23:25:46
[2025-10-13 19:40] LABS: Microscopic, Urine URINE MICROSCOPIC (MICROSCOPIC)
[2025-10-13 19:46] LABS: Bilirubin,Urine Negative (Negative); Color,Urine YELLOW (Yellow); Glucose,Urine (UA) Negative (Negative); Ketones,Urine Negative (Negative); Leukocyte Esterase,Urine Negative (Negative); PH,Urine 5.5 (5.0-8.5); Protein,Urine 1+ (Negative); Urobilinogen,Urine 0.2 EU/dl (0.2)
[2025-10-13 19:51] LABS: Specific Gravity, Urine 1.030 (1.005-1.030)
[2025-10-13 19:59] LABS: Bacteria,Urine 1+ /lpf; Mucus,Urine 4+ /lpf
[2025-10-13 20:27] VITALS: BP 126/76; PULSE 87; RESP 16; TEMP 37.1; O2SAT 96
== END 2025-10-13 20:32 | disposition home or self-care (01) ==
PROVIDERS: Nurse Practitioner Family; Emergency Provider Student in an Organized Health Care Education/Training Program; PCP Nurse Practitioner Family
DX: E86.0 Dehydration (principal); R42 Dizziness and giddiness; R11.2 Nausea with vomiting, unspecified
CPT/HCPCS: 81001; 82962; 87086; 93005; 99283